=== PATIENT | female | born 1965 | race Caucasian/White ===

== ENCOUNTER 2016-07-26 18:51 | Emergency (ER) | payer OTHER ==
[2016-07-26] MEDS ORDERED: ACETAMINOPHEN 325 MG TABLET PO ONE (20:02)
[2016-07-26] MEDS ORDERED: ONDANSETRON 4 MG TAB.RAPDIS PO ONE (20:02)
--- NOTE | 2016-07-26 20:02 | ER Document Report ---
ED Medical Screen (RME) - General Mode of Arrival: Ambulatory Information source: Patient TRAVEL OUTSIDE OF THE [place] IN LAST 30 DAYS: No - General Chief Complaint: Head Injury Stated Complaint: HEAD INJURY Time Seen by Provider: 07/26/16 20:02 Notes: Patient presents today secondary to a fall 2 days ago. Patient states she tripped and fell hitting her head on the baseboard. Patient states she "slept for 2 days and then was awoken up by an ambulance last night". Patient states she refused transport at this time because she was "too tired". Patient states she has a history of anxiety with panic attacks. Patient states now her head feels like "she is wearing headphones". Patient also complains of neck pain, mild nausea, and a headache. Patient is not on any blood thinning medication. ( RUTHANN [place]) - Related Data Allergies/Adverse Reactions: naproxen [Naproxen] Allergy (Verified 03/13/13 11:55) Past Medical History - Past Medical History Cardiac Medical History: Reports: Hx Hypertension Neurological Medical History: Reports: Hx Seizures - 2008 x1 Renal/ Medical History: Denies: Hx Peritoneal Dialysis Musculoskeltal Medical History: Reports Hx Arthritis Psychiatric Medical History: Reports: Hx Depression Past Surgical History: Reports: Hx Abdominal Surgery - gastric bypass, hernia repair, Hx Section - Immunizations Hx Diphtheria, Pertussis, Tetanus Vaccination: - unknown Review of Systems - Review of Systems Gastrointestinal: See HPI, Nausea Neurological/Psychological: See HPI, Headaches Course - Re-evaluation Re-evalutation: 07/26/16 20:58 I personally performed the services described in the documentation, reviewed and edited the documentation which was dictated to the scribe in my presence, and it accurately records my words and actions. (TEO ADAMS) - Vital Signs Vital signs: Temp Pulse Resp BP Pulse Ox 97.9 F 81 123/78 97 07/26/16 19:34 07/26/16 19:34 07/26/16 19:34 07/26/16 19:34 Doctor's Discharge - Discharge Clinical Impression: Head trauma, Concussion Condition: Good Disposition: HOME, SELF-CARE Additional Instructions: You have likely sustained a contusion (bruise) to your head. If you had a CT scan done, it did not show any evidence of serious injury or bleeding. Symptoms to expect from a concussion include nausea, mild to moderate headache, difficulty concentrating or sleeping, and mild lightheadedness. These symptoms should improve over the next few days to weeks. Return to the emergency department or follow-up with your primary care doctor if your symptoms are not improving over this time. Signs of a more serious head injury include vomiting , severe headache, excessive sleepiness or confusion, and weakness or numbness in your face, arms or legs. Return immediately to the Emergency Department if you experience any of these more concerning symptoms. Rest, avoid strenuous physical or mental activity, and avoid activities that could potentially result in another head injury until all your symptoms from this head injury are completely resolved for at least 2-3 weeks. If you participate in sports, get cleared by your doctor or bilingual trainer before returning to play. You may take ibuprofen or acetaminophen over the counter according to label instructions for mild headache or scalp soreness.
[2016-07-26] MEDS ORDERED: ACETAMINOPHEN 325 MG TABLET ONE (20:22)
--- NOTE | 2016-07-26 20:53 | ER Document Report ---
ED Headache - General Chief Complaint: Head Injury Stated Complaint: HEAD INJURY Time Seen by Provider: 07/26/16 20:02 Mode of Arrival: Ambulatory Notes: Patient is a 51-year-old female who presents after falling and striking her head 2 days ago now complaining of symptoms confusion, intermittent blurred vision, nausea and forgetfulness. States that she did have loss of consciousness when she hit her head. States this was a mechanical trip and fall and denies any syncopal episode. She is not on anticoagulation. She has not had any vomiting, focal weakness, numbness. She has not seen her primary care doctor regarding today's concerns. Lights, sounds, and complex activities worsen her symptoms. She is noted that laying in a quiet dark room improves her symptoms. She does note an associated dull, constant, aching headache. TRAVEL OUTSIDE OF THE [place] IN LAST 30 DAYS: No - Related Data Allergies/Adverse Reactions: naproxen [Naproxen] Allergy (Verified 03/13/13 11:55) Past Medical History - General Information source: Patient - Social History Smoking Status: Never Smoker Frequency of alcohol use: None Drug Abuse: None Lives with: Spouse/Significant other Family History: Reviewed & Not Pertinent - Past Medical History Cardiac Medical History: Reports: Hx Hypertension Neurological Medical History: Reports: Hx Seizures - 2008 x1 Renal/ Medical History: Denies: Hx Peritoneal Dialysis Musculoskeltal Medical History: Reports Hx Arthritis Psychiatric Medical History: Reports: Hx Depression Past Surgical History: Reports: Hx Abdominal Surgery - gastric bypass, hernia repair, Hx Section - Immunizations Hx Diphtheria, Pertussis, Tetanus Vaccination: - unknown Review of Systems - Review of Systems Notes: Constitutional: Negative for fever. HENT: Negative for sore throat. Eyes: Negative for visual changes. Cardiovascular: Negative for chest pain. Respiratory: Negative for shortness of breath. Gastrointestinal: Negative for abdominal pain, vomiting or diarrhea. Genitourinary: Negative for dysuria. Musculoskeletal: Negative for back pain. Skin: Negative for rash. Neurological: Positive for headaches, negative for weakness or numbness. 10 point ROS negative except as marked above and in HPI. Physical Exam - Vital signs Vitals: Temp Pulse BP Pulse Ox 97.9 F 81 123/78 97 07/26/16 19:34 07/26/16 19:34 07/26/16 19:34 07/26/16 19:34 Interpretation: Normal Notes: PHYSICAL EXAMINATION: GENERAL: Well-appearing, no acute distress. HEAD: Atraumatic, normocephalic. EYES: Pupils equal round and reactive to light, extraocular movements intact, sclera anicteric, conjunctiva are normal. ENT: nares patent, no oral pharyngeal trauma. No hemotympanum, no Delcid's sign , no raccoon eyes. NECK: No midline cervical spine tenderness. Patient able to move their head to 45 bilaterally without any discomfort. LUNGS: Breath sounds clear to auscultation bilaterally and equal. No wheezes rales or rhonchi. HEART: Regular rate and rhythm without murmurs. CHEST WALL: No ecchymosis over the chest wall. ABDOMEN: Soft, nontender, normoactive bowel sounds. No guarding, no rebound. No abdominal bruising EXTREMITIES: Normal range of motion, no pitting or edema. No long bone deformities. BACK: No midline spinal tenderness, step-offs, or deformities. NEUROLOGICAL: Face symmetric. Tongue protrudes midline. Extraocular motions intact. Pupils are 2 mm and equally reactive. Normal speech, normal gait. 5 out of 5 strength in both the distal and proximal upper and lower extremities bilaterally. Sensation is grossly intact throughout. Finger to nose testing normal. Pronator drift normal. PSYCH: Normal mood, normal affect. SKIN: Warm, Dry, normal turgor, no rashes or lesions noted. Course - Re-evaluation Re-evalutation: 07/26/16 20:52 Presentation of head trauma in an otherwise well-appearing patient. No focal neurologic deficits on exam, no evidence of basilar skull fracture on exam without evidence of hemotympanum, raccoon eyes, or periauricular hematoma. No papilledema. Patient is not on anticoagulation. GCS is 15. Patient did have loss of consciousness. No episodes of vomiting. Patient is negative by Portuguese head CT criteria but a CT the head was obtained in triage prior to my assessment the patient and is noted to be normal. Patient evaluated by NEXUS criteria and found to be negative. Patient is also negative by iraqi C-spine criteria. No clinical evidence to suggest increased risk of cervical spine fracture. No indication for further imaging of the cervical spine this point. Her history is overall most consistent with an acute concussion. No additional need for additional labs or imaging.At this time will discharge with return precautions and follow-up recommendations. Verbal discharge instructions given a the bedside and opportunity for questions given. Medication warnings reviewed. Patient is in agreement with this plan and has verbalized understanding of return precautions and the need for primary care follow-up in the next 24-72 hours. - Vital Signs Vital signs: Temp Pulse Resp BP Pulse Ox 97.9 F 73 18 128/70 H 100 07/26/16 21:08 07/26/16 21:08 07/26/16 21:08 07/26/16 21:08 07/26/16 21:08 Discharge - Discharge Clinical Impression: Head trauma Qualifiers: Encounter type: initial encounter Qualified Code(s): S09.90XA - Unspecified injury of head, initial encounter Concussion Qualifiers: Encounter type: initial encounter Loss of consciousness presence/duration: with LOC of 30 min or less Qualified Code(s): S06.0X1A - Concussion with loss of consciousness of 30 minutes or less, initial encounter Condition: Good Disposition: HOME, SELF-CARE Additional Instructions: You have likely sustained a contusion (bruise) to your head. If you had a CT scan done, it did not show any evidence of serious injury or bleeding. Symptoms to expect from a concussion include nausea, mild to moderate headache, difficulty concentrating or sleeping, and mild lightheadedness. These symptoms should improve over the next few days to weeks. Return to the emergency department or follow-up with your primary care doctor if your symptoms are not improving over this time. Signs of a more serious head injury include vomiting , severe headache, excessive sleepiness or confusion, and weakness or numbness in your face, arms or legs. Return immediately to the Emergency Department if you experience any of these more concerning symptoms. Rest, avoid strenuous physical or mental activity, and avoid activities that could potentially result in another head injury until all your symptoms from this head injury are completely resolved for at least 2-3 weeks. If you participate in sports, get cleared by your doctor or link trainer operator before returning to play. You may take ibuprofen or acetaminophen over the counter according to label instructions for mild headache or scalp soreness.
[2016-07-26 21:12] VITALS: BP 128/70
== END 2016-07-26 21:09 | disposition home or self-care (01) ==
LOC: ER 18:51
DX: S06.0X1A Concussion with loss of consciousness of 30 minutes or less, initial encounter (principal); R11.0 Nausea; H53.8 Other visual disturbances; W19.XXXA Unspecified fall, initial encounter; I10 Essential (primary) hypertension; Z98.84 Bariatric surgery status
CPT/HCPCS: 99284; 70450; S0119

== ENCOUNTER 2016-12-02 16:03 | Emergency (ER) | payer SELFPAY ==
[2016-12-02] MEDS ORDERED: ALPRAZOLAM 0.5 MG TABLET PO ONE (17:21)
--- NOTE | 2016-12-02 17:21 | ER Document Report ---
ED Medical Screen (RME) - General Chief Complaint: Chest Pain Stated Complaint: CHEST PAIN Time Seen by Provider: 12/02/16 17:19 Notes: Patient states that she is under a lot of stress lately due to a divorce and some family issues. She states she is having nightmares. She states she has been out of her medications for several weeks. She states she is having chest pain and cannot stop twitching. TRAVEL OUTSIDE OF THE [place] IN LAST 30 DAYS: No Past Medical History - Social History Chew tobacco use (# tins/day): No Frequency of alcohol use: Occasional Drug Abuse: None - Past Medical History Cardiac Medical History: Reports: Hx Hypertension Neurological Medical History: Reports: Hx Seizures - 2008 x1 Renal/ Medical History: Denies: Hx Peritoneal Dialysis Musculoskeltal Medical History: Reports Hx Arthritis Psychiatric Medical History: Reports: Hx Depression Past Surgical History: Reports: Hx Abdominal Surgery - gastric bypass, hernia repair, Hx Section - Immunizations Hx Diphtheria, Pertussis, Tetanus Vaccination: - unknown Physical Exam - Vital signs Vitals: Temp Pulse Resp BP Pulse Ox 98.5 F 84 18 129/95 H 95 12/02/16 16:12 12/02/16 16:12 12/02/16 16:12 12/02/16 16:12 12/02/16 16:12 Course - Vital Signs Vital signs: Temp Pulse Resp BP Pulse Ox 98.5 F 84 18 129/95 H 95 12/02/16 16:12 12/02/16 16:12 12/02/16 16:12 12/02/16 16:12 12/02/16 16:12
--- NOTE | 2016-12-02 18:28 | EKG REPORT ---
SEVERITY:- NORMAL ECG - SINUS RHYTHM : Confirmed by: Corona Carrillo MD 02-Dec-2016 18:27:44
[2016-12-02 18:57] LABS: APPEARANCE,URINE SLIGHTLY-CLOUDY; BILIRUBIN,URINE NEGATIVE (NEGATIVE); GLUCOSE, URINE NEGATIVE (NEGATIVE); KETONES,URINE TRACE mg/dL (NEGATIVE); LEUKOCYTE ESTERASE,URINE SMALL (NEGATIVE); NITRITE,URINE POSITIVE (NEGATIVE); PROTEIN,URINE 30 mg/dL (NEGATIVE); URINE SPECIFIC GRAVITY 1.014; UROBILINOGEN,URINE NEGATIVE mg/dL (<2.0)
[2016-12-02] MEDS ORDERED: DIPHENHYDRAMINE HCL 50 MG/ML VIAL IV ONE (19:17)
[2016-12-02 19:44] LABS: ABSOLUTE EOSINOPHILS # (AUTO) 0.1 10^3/uL (0.0-0.6); ABSOLUTE MONOCYTES (AUTO) 0.2 10^3/uL (0.1-1.4); ABSOLUTE NEUT (AUTO) 2.8 10^3/uL (1.7-8.2); BASOPHILS % (AUTO) 0.9 % (0-2); HEMOGLOBIN 13.8 g/dL (12.0-15.5); HGB HCT DIFFERENCE 1.4; LYMPHOCYTES % (AUTO) 38.4 % (13-45); MEAN CORPUSCULAR HEMOGLOBIN 31.1 pg (27.0-33.4); MEAN CORPUSCULAR HGB CONC 34.5 g/dL (32.0-36.0); MEAN CORPUSCULAR VOLUME 90 fl (80-97); MONOCYTES % (AUTO) 4.8 % (3-13); RED BLOOD COUNT 4.42 10^6/uL (3.72-5.28); RED CELL DISTRIBUTION WIDTH 13.4 % (11.5-14.0); SEGMENTED NEUTROPHILS % (AUTO) 54.9 % (42-78); WHITE BLOOD COUNT 5.2 10^3/uL (4.0-10.5)
[2016-12-02 20:03] LABS: ALANINE AMINOTRANSFERASE 34 U/L (9-52); ALBUMIN 4.3 g/dL (3.5-5.0); ALKALINE PHOSPHATASE 91 U/L (38-126); ANION GAP 11 (5-19); ASPARTATE AMINO TRANSFERASE 26 U/L (14-36); BILIRUBIN,DIRECT 0.3 mg/dL (0.0-0.4); BILIRUBIN,TOTAL 0.6 mg/dL (0.2-1.3); BLOOD UREA NITROGEN 10 mg/dL (7-20); CALCIUM 9.5 mg/dL (8.4-10.2); CARBON DIOXIDE 25 mmol/L (22-30); CHLORIDE 104 mmol/L (98-107); CREATININE RESULT 0.76 mg/dL (0.52-1.25); GLUCOSE 80 mg/dL (75-110); POTASSIUM 4.1 mmol/L (3.6-5.0); SODIUM 139.8 mmol/L (137-145); TOTAL PROTEIN 6.8 g/dL (6.3-8.2)
[2016-12-02 20:06] LABS: ALCOHOL < 10 mg/dL (NONE DETECTED)
[2016-12-02] MEDS ORDERED: CEPHALEXIN 500 MG CAPSULE PO ONE (21:16)
--- NOTE | 2016-12-02 21:19 | ER Document Report ---
ED General - General Chief Complaint: Chest Pain Stated Complaint: CHEST PAIN Time Seen by Provider: 12/02/16 17:19 Mode of Arrival: Stretcher Information source: Patient TRAVEL OUTSIDE OF THE [place] IN LAST 30 DAYS: No - HPI Patient complains to provider of: Twitching Onset: This morning Onset/Duration: Persistent Quality of pain: No pain Associated symptoms: Chest pain Exacerbated by: Denies Relieved by: Denies Notes: Patient is a 51-year-old female presenting to the emergency room today complaining of twitching that has been going on all day, apparently she had some chest tightness but denies chest pain, she reports increased stress, decreased sleep, having "stress nightmares", history of seizures 8 years ago but denies this being a seizure and she does not currently take any seizure medication, denies a history of similar symptoms previously, she currently sees just at [facility], taking Xanax, Adderall, amitriptyline and Celexa, no new medications and no changes to those medications recently, she denies any injury or trauma Past Medical History - General Information source: Patient - Social History Smoking Status: Former Smoker Chew tobacco use (# tins/day): No Frequency of alcohol use: Occasional Drug Abuse: None Family History: Reviewed & Not Pertinent Patient has suicidal ideation: No Patient has homicidal ideation: No - Past Medical History Cardiac Medical History: Reports: Hx Hypertension Neurological Medical History: Reports: Hx Seizures - 2008 x1 Renal/ Medical History: Denies: Hx Peritoneal Dialysis Musculoskeltal Medical History: Reports Hx Arthritis Psychiatric Medical History: Reports: Hx Depression Past Surgical History: Reports: Hx Abdominal Surgery - gastric bypass, hernia repair, Hx Section - Immunizations Hx Diphtheria, Pertussis, Tetanus Vaccination: - unknown Review of Systems - Review of Systems Constitutional: No symptoms reported EENT: No symptoms reported Cardiovascular: See HPI Respiratory: No symptoms reported Gastrointestinal: No symptoms reported Genitourinary: No symptoms reported Female Genitourinary: No symptoms reported Musculoskeletal: No symptoms reported Skin: No symptoms reported Hematologic/Lymphatic: No symptoms reported Neurological/Psychological: See HPI -: Yes All other systems reviewed and negative Physical Exam - Vital signs Vitals: Temp Pulse Resp BP Pulse Ox 98.5 F 84 18 129/95 H 95 12/02/16 16:12 12/02/16 16:12 12/02/16 16:12 12/02/16 16:12 12/02/16 16:12 Interpretation: Normal - General General appearance: Appears well, Alert - HEENT Head: Normocephalic, Atraumatic Eyes: Normal Pupils: PERRL - Respiratory Respiratory status: No respiratory distress Chest status: Nontender Breath sounds: Normal Chest palpation: Normal - Cardiovascular Rhythm: Regular Heart sounds: Normal auscultation Murmur: No - Abdominal Inspection: Normal Distension: No distension Bowel sounds: Normal Tenderness: Nontender Organomegaly: No organomegaly - Back Back: Normal, Nontender - Extremities General upper extremity: Normal inspection, Nontender, Normal color, Normal ROM , Normal temperature General lower extremity: Normal inspection, Nontender, Normal color, Normal ROM , Normal temperature, Normal weight bearing. No: Freda's sign - Neurological Neuro grossly intact: Yes Cognition: Normal Orientation: AAOx4 [place] Coma Scale Eye Opening: Spontaneous [place] Coma Scale Verbal: Oriented [place] Coma Scale Motor: Obeys Commands [place] Coma Scale Total: 15 Speech: Normal Motor strength normal: LUE, RUE, LLE, RLE Additional motor exam normals: Other - Patient is having twitching and or spasms of the left arm and shoulder during my evaluation, when I distract her they seem to stop Sensory: Normal - Psychological Associated symptoms: Flat affect - Skin Skin Temperature: Warm Skin Moisture: Dry Skin Color: Normal Course - Re-evaluation Re-evalutation: 12/02/16 22:32 Patient admits to a mental health history, she reports having twitching throughout the day today, during my evaluation her twitching activity seems to stop when I distract her, she does admit to decreased sleep, increased stressors and "stress nightmares", she states that she sees just at [facility] every 3 months and is not due for an appointment anytime soon, she is agreeable to staying in the emergency room tonight to speak with our mental health worker in the morning to discuss any further resources that might be available for her symptoms - Vital Signs Vital signs: Temp Pulse Resp BP Pulse Ox 98.5 F 84 18 129/95 H 95 12/02/16 16:12 12/02/16 16:12 12/02/16 16:12 12/02/16 16:12 12/02/16 16:12 - Laboratory Result Diagrams: 12/02/16 19:20 12/02/16 19:20 Laboratory results interpreted by me: 12/02/16 12/02/16 17:59 19:20 Urine Protein 30 H Urine Ketones TRACE H Urine Nitrite POSITIVE H Ur Leukocyte Esterase SMALL H Salicylates 1.5 L Acetaminophen < 10 L - EKG Interpretation by Me EKG shows normal: Sinus rhythm Rate: Normal Rhythm: NSR Discharge - Discharge Clinical Impression: Twitching, Anxiety Condition: Stable Disposition: PSYCH HOSP/UNIT
[2016-12-02] MEDS ORDERED: DIPHENHYDRAMINE HCL 50 MG/ML VIAL ONE (23:01)
[2016-12-02 23:02] LABS: AMORPHOUS SEDIMENT,URINE TRACE /HPF; APPEARANCE,URINE CLOUDY; BILIRUBIN,URINE NEGATIVE (NEGATIVE); GLUCOSE, URINE NEGATIVE (NEGATIVE); KETONES,URINE 20 mg/dL (NEGATIVE); LEUKOCYTE ESTERASE,URINE MODERATE (NEGATIVE); NITRITE,URINE POSITIVE (NEGATIVE); PROTEIN,URINE 30 mg/dL (NEGATIVE); URINE SPECIFIC GRAVITY 1.023; UROBILINOGEN,URINE NEGATIVE mg/dL (<2.0)
[2016-12-02 23:14] LABS: URINE BARBITURATES SCREEN NEGATIVE; URINE METHADONE SCREEN NEGATIVE; URINE OPIATES LOW NEGATIVE; URINE PHENCYCLIDINE SCREEN NEGATIVE
[2016-12-02] MEDS ORDERED: ACETAMINOPHEN 325 MG TABLET PO ONE (23:25)
--- NOTE | 2016-12-03 10:53 | ER Document Report ---
ED Psych Disorder / Suicide - General Chief Complaint: Chest Pain Stated Complaint: CHEST PAIN Time Seen by Provider: 12/02/16 17:19 Mode of Arrival: Stretcher TRAVEL OUTSIDE OF THE [place] IN LAST 30 DAYS: No - HPI Notes: Patient is a 51-year-old female presenting to the emergency room today complaining of twitching that has been going on all day, apparently she had some chest tightness but denies chest pain, she reports increased stress, decreased sleep, having "stress nightmares", history of seizures 8 years ago but denies this being a seizure and she does not currently take any seizure medication, denies a history of similar symptoms previously, she currently sees just at [facility], taking Xanax, Adderall, amitriptyline and Celexa, no new medications and no changes to those medications recently, she denies any injury or trauma Clinician conducted chart review: Attending physician noted the patient reported having twitching throughout the day today, "during my evaluation her twitching activity seems to stop when I distract her." Attending nurse noted "PT DOES NOT APPEAR TO BE TWITCHING THIS NURSE HAS WALKED BY SEVERAL TIMES IN LAST HOUR." it is also noted the patient continued with this behavior of only twitching when she thought she was being observed the entire evening. Evaluation Clinician notes patient is not twitching upon entering the room. As conversation progressed patient twitches more often and increased in movement. Patient disclosed that she has been under a lot of stress. 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 She states "they wanted me to close the case but she was not safe and I would not do it." She continued disclosed that she ended up being fired but reasoning was because she "did not fill out time her timesheets." Patient does not disclose further employment past that time. She states she goes to [employer] and has anxiety. Patient disclosed she is prescribed Celexa, Adderall, Xanax, amitriptyline. She states it has been about 3 months since she has been taking medication. Patient is alert and orientated to person, place, time and circumstance. Mood is anxious with tearful affect. Patient is noted to demonstrate psychomotor agitation however appears to be in control of this movement as it is only observed when patient feels she is being watched, and increases the movement during conversation. Patient denies suicidal and homicidal ideation. Patient denies auditory visual hallucinations. Delusions were absent and behaviors congruent with intact reality based presentation i.e. organized, linear, rational thinking. Eye contact was fair. Conversational speech was within normal rate tone and prosody. Intellectual abilities appear to be within average range. Attention and concentration were good. Insight, judgment, impulse control are good. 311 (F32.9) unspecified depressive disorder 300.00 (F41.9) unspecified anxiety disorder per history provided by patient Impression\\plan: Patient is considered psychiatrically clear for discharge. Patient does not meet IVC criteria per [place] GS 122C. Patient denies suicidal and homicidal ideation. Delusions were absent and behaviors congruent with intact reality based presentation i.e. organized, linear, rational thinking. Patient discloses issues with psychomotor agitation however it is noted by attending physician, attending nurses, and this clinician patient appears to be in control of this movement. Patient is recommended for outpatient services for mental health. Dr. Meyer was consulted and the care management of the patient ; attending physician is in agreement with her conditions and disposition per Past Medical History - General Information source: Patient - Social History Smoking Status: Former Smoker Chew tobacco use (# tins/day): No Frequency of alcohol use: Occasional Drug Abuse: None Family History: Reviewed & Not Pertinent Patient has suicidal ideation: No Patient has homicidal ideation: No - Past Medical History Cardiac Medical History: Reports: Hx Hypertension Neurological Medical History: Reports: Hx Seizures - 2008 x1 Renal/ Medical History: Denies: Hx Peritoneal Dialysis Musculoskeltal Medical History: Reports Hx Arthritis Psychiatric Medical History: Reports: Hx Depression Past Surgical History: Reports: Hx Abdominal Surgery - gastric bypass, hernia repair, Hx Section - Immunizations Hx Diphtheria, Pertussis, Tetanus Vaccination: - unknown Physical Exam - Vital signs Vitals: Temp Pulse Resp BP Pulse Ox 98.5 F 84 18 129/95 H 95 12/02/16 16:12 12/02/16 16:12 12/02/16 16:12 12/02/16 16:12 12/02/16 16:12 Course - Vital Signs Vital signs: Temp Pulse Resp BP Pulse Ox 98.5 F 84 16 137/91 H 97 12/02/16 16:12 12/02/16 16:12 12/03/16 10:30 12/03/16 10:30 12/03/16 10:30 - Laboratory Result Diagrams: 12/02/16 19:20 12/02/16 19:20 Laboratory results interpreted by me: 12/02/16 12/02/16 12/02/16 17:59 19:20 22:40 Urine Protein 30 H 30 H Urine Ketones TRACE H 20 H Urine Nitrite POSITIVE H POSITIVE H Ur Leukocyte Esterase SMALL H MODERATE H Salicylates 1.5 L Acetaminophen < 10 L Discharge - Discharge Clinical Impression: Twitching, Anxiety Urinary tract infection Qualifiers: Urinary tract infection type: site unspecified Hematuria presence: without hematuria Qualified Code(s): N39.0 - Urinary tract infection, site not specified Condition: Stable Disposition: HOME, SELF-CARE Additional Instructions: Anxiety The physician feels that some of your health problems are being caused by anxiety. Anxiety affects your health in many ways. Anxiety alone can cause palpitations, sweats, chest pains, abdominal pains, shortness of breath, and headaches. It contributes to ulcer disease, high blood pressure, irritable bowel syndrome, and has been shown to cause flare-ups of many other diseases. Anxiety is not a simple disorder to treat. If the anxiety is due to recent life stresses, you may simply need time to "work through" the changes. If the anxiety is due to an underlying unhappiness with yourself or due to psychiatric disturbance, professional help will be needed. Your physician can refer you for further help if needed. Anti-anxiety medication is occasionally given if the stress is acute or if you are having trouble sleeping. Chronic or frequent use of these medications is not a good idea because the body becomes reliant on it, preventing you from dealing with life's normal stresses. [facility] with [facility] for your outpatient mental health services in 3-5 days. AT ANY TIME, IF YOUR SYMPTOMS CHANGE SIGNIFICANTLY OR WORSEN OR YOU DEVELOP NEW SYMPTOMS, RETURN TO THE EMERGENCY DEPARTMENT IMMEDIATELY FOR RE-EVALUATION. OUR GOAL IS TO PROVIDE EXCELLENT MEDICAL CARE! WE HOPE THAT WE HAVE MET YOUR EXPECTATIONS DURING YOUR EMERGENCY DEPARTMENT VISIT AND THAT YOU FEEL YOU HAVE RECEIVED EXCELLENT CARE! Referrals: [facility] [Outside] - Follow up in 3-5 days
[2016-12-03] MEDS ORDERED: OLANZAPINE 5 MG TAB.RAPDIS PO ONE (11:22)
[2016-12-03 11:40] VITALS: BP 131/95
== END 2016-12-03 11:41 | disposition home or self-care (01) ==
LOC: ER 16:03
DX: F41.9 Anxiety disorder, unspecified (principal); R25.3 Fasciculation; R07.89 Other chest pain; F32.9 Major depressive disorder, single episode, unspecified; N39.0 Urinary tract infection, site not specified; I10 Essential (primary) hypertension; Z79.899 Other long term (current) drug therapy; Z98.84 Bariatric surgery status; Z87.891 Personal history of nicotine dependence; Z63.5 Disruption of family by separation and divorce; Z56.0 Unemployment, unspecified
CPT/HCPCS: 93005; 99285; 96374; 36415; 80307 ×4; 85025; 80053; 81001; 84484; 93010; J3490; J1200

== ENCOUNTER 2019-09-03 12:28 | Emergency (ER) | payer SELFPAY ==
--- NOTE | 2019-09-03 12:48 | ER Document Report ---
ED Medical Screen (RME) - General Chief Complaint: Feet Swelling Stated Complaint: FEET/LEG SWELLING Time Seen by Provider: 09/03/19 12:42 Mode of Arrival: Ambulatory Information source: Patient Notes: HPI; 54-year-old female presents emergency room complaining of bilateral leg swelling for the past 4 weeks. Denies any recent travel. No dietary changes. Complains of shortness of breath worse with exertion. Denies chest pain. No history of CHF. PE: Alert and oriented x3. Moderate distress noted. Lungs with bibasilar crackles no rales no rhonchi. Heart: Regular rate rhythm without murmurs rubs or gallops. 3+ pitting edema bilateral lower extremities. I have greeted and performed a rapid initial assessment of this patient. A comprehensive ED assessment and evaluation of the patient, analysis of test results and completion of the medical decision making process will be conducted by additional ED providers. I have specifically instructed the patient or family members with the patient to immediately return to any nursing staff should anything change in the patient's condition or with their chief complaint. TRAVEL OUTSIDE OF THE [place] IN LAST 30 DAYS: No - Related Data Allergies/Adverse Reactions: No Known Allergies Allergy (Unverified 09/03/19 12:41) Past Medical History - Past Medical History Cardiac Medical History: Reports: Hx Hypertension Neurological Medical History: Reports: Hx Seizures - 2008 x1 Renal/ Medical History: Denies: Hx Peritoneal Dialysis Musculoskeltal Medical History: Reports Hx Arthritis Psychiatric Medical History: Reports: Hx Depression Past Surgical History: Reports: Hx Abdominal Surgery - gastric bypass, hernia repair, Hx Section - Immunizations Hx Diphtheria, Pertussis, Tetanus Vaccination: - unknown Physical Exam - Vital signs Vitals: Temp Pulse Resp BP Pulse Ox 98.7 F 83 20 122/76 96 09/03/19 12:35 09/03/19 12:35 09/03/19 12:35 09/03/19 12:35 09/03/19 12:35 Course - Vital Signs Vital signs: Temp Pulse Resp BP Pulse Ox 98.7 F 83 20 122/76 96 09/03/19 12:35 09/03/19 12:35 09/03/19 12:35 09/03/19 12:35 09/03/19 12:35
[2019-09-03 13:20] LABS: ABSOLUTE EOSINOPHILS # (AUTO) 0.1 10^3/uL (0.0-0.6); ABSOLUTE LYMPHOCYTES (AUTO) 2.1 10^3/uL (0.5-4.7); ABSOLUTE MONOCYTES (AUTO) 0.3 10^3/uL (0.1-1.4); ABSOLUTE NEUT (AUTO) 2.6 10^3/uL (1.7-8.2); BASOPHILS % (AUTO) 0.7 % (0-2); EOSINOPHILS % (AUTO) 1.7 % (0-6); LYMPHOCYTES % (AUTO) 41.1 % (13-45); MEAN CORPUSCULAR HEMOGLOBIN 29.6 pg (27.0-33.4); MEAN CORPUSCULAR HGB CONC 33.2 g/dL (32.0-36.0); MEAN CORPUSCULAR VOLUME 89 fl (80-97); MONOCYTES % (AUTO) 5.3 % (3-13); PLATELET COUNT 329 10^3/uL (150-450); RED BLOOD COUNT 4.38 10^6/uL (3.72-5.28); RED CELL DISTRIBUTION WIDTH 14.6 % (11.5-14.0); SEGMENTED NEUTROPHILS % (AUTO) 51.2 % (42-78); TOTAL CELLS COUNTED % (AUTO) 100 %; WHITE BLOOD COUNT 5.2 10^3/uL (4.0-10.5)
--- NOTE | 2019-09-03 13:23 | RADIOLOGY REPORT (SQ) ---
EXAM DESCRIPTION: CHEST 2 VIEWS IMAGES COMPLETED DATE/TIME: 09/03/2019 1:09 pm REASON FOR STUDY: Dyspnea COMPARISON: PA and lateral views of the chest from 11/30/2013. EXAM PARAMETERS: NUMBER OF VIEWS: Two views. TECHNIQUE: PA and lateral views of the chest were obtained. RADIATION DOSE: NA LIMITATIONS: None. FINDINGS: LUNGS AND PLEURA: No consolidation, pleural effusion or pneumothorax. MEDIASTINUM AND HILAR STRUCTURES: No mediastinal or hilar contour abnormality. HEART AND VASCULAR STRUCTURES: The cardiac silhouette and pulmonary vasculature are within normal brand its. BONES: No acute findings. HARDWARE: None in the chest. OTHER: No other finding. IMPRESSION: No acute cardiopulmonary process. TECHNICAL DOCUMENTATION: JOB ID: [id number] 2010 [employer]- All Rights Reserved Reading location - IP/workstation name: [email or web address]
[2019-09-03 13:29] LABS: APPEARANCE,URINE SLIGHTLY-CLOUDY; BILIRUBIN,URINE NEGATIVE (NEGATIVE); COLOR,URINE YELLOW; GLUCOSE, URINE NEGATIVE (NEGATIVE); KETONES,URINE NEGATIVE (NEGATIVE); LEUKOCYTE ESTERASE,URINE MODERATE (NEGATIVE); NITRITE,URINE POSITIVE (NEGATIVE); PROTEIN,URINE NEGATIVE (NEGATIVE); URINE SPECIFIC GRAVITY 1.014; UROBILINOGEN,URINE NEGATIVE mg/dL (<2.0)
[2019-09-03 13:40] LABS: ALBUMIN 3.3 g/dL (3.5-5.0); ALKALINE PHOSPHATASE 75 U/L (38-126); ASPARTATE AMINO TRANSFERASE 24 U/L (14-36); BILIRUBIN,TOTAL 0.2 mg/dL (0.2-1.3); BLOOD UREA NITROGEN 11 mg/dL (7-20); CALCIUM 8.7 mg/dL (8.4-10.2); CREATINE KINASE 61 U/L (30-135); GLUCOSE 101 mg/dL (75-110); TOTAL PROTEIN 5.5 g/dL (6.3-8.2)
[2019-09-03 13:45] LABS: CARBON DIOXIDE 30 mmol/L (22-30); CHLORIDE 105 mmol/L (98-107)
[2019-09-03 13:46] LABS: ANION GAP 2 (5-19)
[2019-09-03 13:48] LABS: CREATINE KINASE MB 0.23 ng/mL (<4.55); NT PRO BNP 23 pg/mL (<125)
[2019-09-03 13:54] LABS: TROPONIN I < 0.012 ng/mL
--- NOTE | 2019-09-03 17:46 | ER Document Report ---
ED Extremity Problem, Lower - General Chief Complaint: Feet Swelling Stated Complaint: FEET/LEG SWELLING Time Seen by Provider: 09/03/19 12:42 Primary Care Provider: [facility] [Provider Group] - Follow up as needed [facility] [Provider Group] - Follow up as needed Mode of Arrival: Ambulatory Notes: Patient is a 54-year-old female who presents emergency department with a chief complaint of bilateral leg swelling. Patient reports she has had intermittent bilateral leg swelling for 1 month. She reports that she elevates her legs and decreases the amount of sodium in her diet without relief. Patient reports that she has a family history of congestive heart failure and concerned this may be associated. Patient reports she is also homeless and under a lot of stress as her son months ago. Patient reports she has had high anxiety and is supposed to be on multiple medications. Patient reports she used to go to see [facility] but since being homeless and losing her health insurance she has not been able to follow-up. Patient denies urinary symptoms. Patient denies cough. Patient reports overall fatigue. Patient states she does not take any home medications. TRAVEL OUTSIDE OF THE [place] IN LAST 30 DAYS: No - Related Data Allergies/Adverse Reactions: No Known Allergies Allergy (Unverified 09/03/19 12:41) Past Medical History - General Information source: Patient - Social History Smoking Status: Current Some Day Smoker Smoking Education Provided: Yes Frequency of alcohol use: None Drug Abuse: None Lives with: Homeless Family History: Reviewed & Not Pertinent Patient has homicidal ideation: No - Past Medical History Cardiac Medical History: Reports: Hx Hypertension Pulmonary Medical History: Reports: None EENT Medical History: Reports: None Neurological Medical History: Reports: Hx Seizures - 2008 x1 Endocrine Medical History: Reports: None Renal/ Medical History: Reports: None. Denies: Hx Peritoneal Dialysis Malignancy Medical History: Reports: None GI Medical History: Reports: None Musculoskeletal Medical History: Reports Hx Arthritis Psychiatric Medical History: Reports: Hx Depression Traumatic Medical History: Reports: None Infectious Medical History: Reports: None Past Surgical History: Reports: Hx Abdominal Surgery - gastric bypass, hernia repair, Hx Section - Immunizations Hx Diphtheria, Pertussis, Tetanus Vaccination: - unknown Review of Systems - Review of Systems Constitutional: See HPI EENT: No symptoms reported Cardiovascular: See HPI Respiratory: No symptoms reported Gastrointestinal: No symptoms reported Genitourinary: No symptoms reported Female Genitourinary: No symptoms reported Musculoskeletal: No symptoms reported Skin: No symptoms reported Hematologic/Lymphatic: No symptoms reported Neurological/Psychological: No symptoms reported Physical Exam - Vital signs Vitals: Temp Pulse Resp BP Pulse Ox 98.7 F 83 20 122/76 96 09/03/19 12:35 09/03/19 12:35 09/03/19 12:35 09/03/19 12:35 09/03/19 12:35 Interpretation: Normal - Notes Notes: GENERAL: Well-appearing, well-nourished and in no acute distress. HEAD: Atraumatic, normocephalic. EYES: Pupils equal round and reactive to light, extraocular movements intact, sclera anicteric, conjunctiva are normal. ENT: TMs normal, nares patent, oropharynx clear without exudates. Moist mucous membranes. NECK: Normal range of motion, supple without lymphadenopathy or JVD. LUNGS: Breath sounds clear to auscultation bilaterally and equal. No wheezes rales or rhonchi. HEART: Regular rate and rhythm without murmurs, rubs or gallops. ABDOMEN: Soft, nontender, normoactive bowel sounds. No guarding, no rebound. No masses appreciated. BACK: No cervical, thoracic, lumbar midline tenderness. No saddle anesthesia, normal distal neurovascular exam. GENITOURINARY: Deferred. EXTREMITIES: Normal range of motion, + 1 pitting edema to b/l lower extremities, slightly worse on left. No clubbing or cyanosis. NEUROLOGICAL: Cranial nerves II through XII grossly intact. Normal speech, normal gait. PSYCH: Normal mood, normal affect. SKIN: Warm, Dry, normal turgor, no rashes or lesions noted. Course - Re-evaluation Re-evalutation: 09/03/19 17:59 Patient reports she has been under a lot of stress recently. Patient reports she is homeless. Patient denies suicidal thoughts or homicidal thoughts. Sta kristie she is living in her vehicle. I did offer for the patient to speak with her mental health counselor as a resource. Patient reports that she does not want to wait and would like to go home as she does not like to drive pass dark. I did provide the patient with multiple resources in the local area. I did inform her that we do not refill anxiety medication such as her amitriptyline and Xanax. She will need to follow-up with [facility]. We will treat the patient for urinary tract infection. Patient reports that she has been walking a lot as she thought this would help with the circulation in her legs and help with the swelling. I did inform the patient to stay off of her feet and to elevate above the heart. Patient was given referrals for [facility]. - Vital Signs Vital signs: Temp Pulse Resp BP Pulse Ox 97.9 F 72 20 130/83 H 99 09/03/19 18:21 09/03/19 18:21 09/03/19 18:21 09/03/19 18:21 09/03/19 18:21 - Laboratory Result Diagrams: 09/03/19 12:57 09/03/19 12:57 Laboratory results interpreted by me: 09/03/19 09/03/19 09/03/19 12:57 12:57 12:57 RDW 14.6 H Anion Gap 2 L Total Protein 5.5 L Albumin 3.3 L Urine Nitrite POSITIVE H Ur Leukocyte Esterase MODERATE H Urine Ascorbic Acid 40 H 09/03/19 17:43 Patient does not have a leukocytosis, anemia, altered patient electrolytes or kidney function. Patient's AST and ALT are normal. Patient does have positive nitrites and leuks in her urine consistent with a UTI. Laboratory 09/03/19 09/03/19 09/03/19 12:57 12:57 12:57 WBC 5.2 RBC 4.38 Hgb 13.0 Hct 39.0 MCV 89 MCH 29.6 MCHC 33.2 RDW 14.6 H Plt Count 329 Lymph % (Auto) 41.1 Bureau % (Auto) 5.3 Eos % (Auto) 1.7 Baso % (Auto) 0.7 Absolute Neuts (auto) 2.6 Absolute Lymphs (auto) 2.1 Absolute Monos (auto) 0.3 Absolute Eos (auto) 0.1 Absolute Basos (auto) 0.0 Seg Neutrophils % 51.2 Sodium 137.2 Potassium 4.0 Chloride 105 Carbon Dioxide 30 Anion Gap 2 L BUN 11 Creatinine 0.93 Est GFR ( Amer) > 60 Est GFR (MDRD) Non-Af > 60 Glucose 101 Calcium 8.7 Total Bilirubin 0.2 Direct Bilirubin 0.0 Neonat Total Bilirubin Not Reportable Neonat Direct Bilirubin Not Reportable Neonat Indirect Bili Not Reportable AST 24 ALT 21 Alkaline Phosphatase 75 Creatine Kinase 61 CK-MB (CK-2) 0.23 Troponin I < 0.012 NT-Pro-B Natriuret Pep 23 Total Protein 5.5 L Albumin 3.3 L Urine Color Urine Appearance Urine pH Ur Specific [place] Urine Protein Urine Glucose (UA) Urine Ketones Urine Blood Urine Nitrite Urine Bilirubin Urine Urobilinogen Ur Leukocyte Esterase Urine WBC (Auto) Urine RBC (Auto) Urine Bacteria (Auto) Squamous Epi Cells Auto Urine Mucus (Auto) Urine Ascorbic Acid 09/03/19 12:57 WBC RBC Hgb Hct MCV MCH MCHC RDW Plt Count Lymph % (Auto) Bureau % (Auto) Eos % (Auto) Baso % (Auto) Absolute Neuts (auto) Absolute Lymphs (auto) Absolute Monos (auto) Absolute Eos (auto) Absolute Basos (auto) Seg Neutrophils % Sodium Potassium Chloride Carbon Dioxide Anion Gap BUN Creatinine Est GFR ( Amer) Est GFR (MDRD) Non-Af Glucose Calcium Total Bilirubin Direct Bilirubin Neonat Total Bilirubin Neonat Direct Bilirubin Neonat Indirect Bili AST ALT Alkaline Phosphatase Creatine Kinase CK-MB (CK-2) Troponin I NT-Pro-B Natriuret Pep Total Protein Albumin Urine Color YELLOW Urine Appearance SLIGHTLY-CLOUDY Urine pH 6.0 Ur Specific [place] 1.014 Urine Protein NEGATIVE Urine Glucose (UA) NEGATIVE Urine Ketones NEGATIVE Urine Blood NEGATIVE Urine Nitrite POSITIVE H Urine Bilirubin NEGATIVE Urine Urobilinogen NEGATIVE Ur Leukocyte Esterase MODERATE H Urine WBC (Auto) 16 Urine RBC (Auto) 1 Urine Bacteria (Auto) 1+ Squamous Epi Cells Auto 9 Urine Mucus (Auto) RARE Urine Ascorbic Acid 40 H - Diagnostic Test Radiology reviewed: Reports reviewed Radiology results interpreted by me: 09/03/19 17:43 Chest X-Ray 09/03/19 12:46 IMPRESSION: No acute cardiopulmonary process. - EKG Interpretation by Me Additional EKG results interpreted by me: 09/03/19 17:43 Patient's EKG shows a normal sinus rhythm with a heart rate of 80. Patient's ND interval is 204, QT is 376 and QTc is 434. Patient has a normal axis deviation. There is no ST segment changes in consecutive leads. EKG appears to be similar to her previous in 2017. Discharge - Discharge Clinical Impression: Bilateral edema of lower extremity, Anxiety Urinary tract infection Qualifiers: Urinary tract infection type: site unspecified Hematuria presence: without hematuria Qualified Code(s): N39.0 - Urinary tract infection, site not specified Condition: Stable Disposition: HOME, SELF-CARE Instructions: Cephalexin ([facility]) Additional Instructions: Today are seen emergency department for bilateral leg swelling. We did work you up for congestive heart failure. Your blood work is reassuring, your EKG was normal, and your chest x-ray was negative. Is unsure what is causing the swelling to your legs. This will need further follow-up. Since you do not have health insurance have provided you with multiple outpatient resources such as the [facility] and [facility]. They do assist patients who do not have health insurance. Please call them tomorrow to schedule an appointment. Please return the emergency department if her symptoms worsen or change. Please follow-up with [facility] for medication refills. Urinary Tract Infection Your evaluation indicates that you have a urinary tract infection. This is due to germs growing in the bladder. This is a common problem. This infection usually responds quickly to antibiotics. Your antibiotic should be taken exactly as prescribed. Drink plenty of fluids -- three to four quarts a day. Occasionally, a bladder anesthetic will be prescribed to help stop the feeling of urgency until the antibiotic has a chance to clear the infection. This may cause your urine to be dark orange. Certain urine infections require a culture. If the doctor obtained a culture, the results will be back in two days. You should call to see if a change in treatment is needed. A repeat urinalysis after you finish treatment is often recommended. The physician will let you know if further testing is required. Call the doctor if you develop fever, chills, flank pain, inability to urinate, or blood in the urine. Edema, Peripheral You have swelling in your legs. This is called peripheral edema. It can be caused by "leaky capillaries," inflammation, disease of the leg veins, or excess salt and water in your body. Edema may be a sign of heart, kidney, or liver disease. A medical evaluation can determine if there is a serious underlying cause for your edema. Avoid prolonged standing. If you must sit for a long time, occasionally get up and walk around or elevate your legs. Support stockings can be helpful in limiting swelling. Often diuretic or water pills are used to remove excess salt and water from your body. Call the doctor or return if you develop increased swelling, pain, or redness, shortness of breath, chest pain, or any other significant change. Anxiety The physician feels that some of your health problems are being caused by anxiety. Anxiety affects your health in many ways. Anxiety alone can cause palpitations, sweats, chest pains, abdominal pains, shortness of breath, and headaches. It contributes to ulcer disease, high blood pressure, irritable bowel syndrome, and has been shown to cause flare-ups of many other diseases. Anxiety is not a simple disorder to treat. If the anxiety is due to recent life stresses, you may simply need time to "work through" the changes. If the anxiety is due to an underlying unhappiness with yourself or due to psychiatric disturbance, professional help will be needed. Your physician can refer you for further help if needed. Anti-anxiety medication is occasionally given if the stress is acute or if you are having trouble sleeping. Chronic or frequent use of these medications is not a good idea because the body becomes reliant on it, preventing you from dealing with life's normal stresses. Prescriptions: Cephalexin Monohydrate [Keflex 500 mg Capsule] 500 mg PO BID #14 capsule Forms: Smoking Cessation Education Referrals: [facility] [Provider Group] - Follow up as needed [facility] [Provider Group] - Follow up as needed
[2019-09-03] MEDS ORDERED: CEPHALEXIN 500 MG CAPSULE PO ONE (18:01)
[2019-09-03 18:26] VITALS: BP 130/83
--- NOTE | 2019-09-04 00:22 | EKG REPORT ---
SEVERITY:- NORMAL ECG - SINUS RHYTHM : Confirmed by: Love Silva 04-Sep-2019 00:22:08
== END 2019-09-03 18:28 | disposition home or self-care (01) ==
LOC: ER 12:28
DX: R60.0 Localized edema (principal); N39.0 Urinary tract infection, site not specified; F41.9 Anxiety disorder, unspecified; R53.83 Other fatigue; F17.200 Nicotine dependence, unspecified, uncomplicated; I10 Essential (primary) hypertension; Z59.0 Homelessness; Z63.4 Disappearance and death of family member; Z82.49 Family history of ischemic heart disease and other diseases of the circulatory system
CPT/HCPCS: 36415; 71046; 80053; 81001; 82550; 82553; 83880; 84484; 85025; 93005; 93010; 99284

== ENCOUNTER 2019-12-16 13:24 | Emergency (ER) | payer SELFPAY ==
[2019-12-16] MEDS ORDERED: ONDANSETRON HCL INJ/PF 4 MG/2 ML SDV IV ONE (13:55)
[2019-12-16] MEDS ORDERED: RINGERS SOLUTION,LACTATED 1,000 ML IV ONE (13:55)
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
[2019-12-16] MEDS ORDERED: HYDROMORPHONE HCL INJ/PF 2 MG/ML AMPULE IV ONE (14:54)
[2019-12-16 14:55] LABS: ABSOLUTE BASOPHILS # (AUTO) 0.1 10^3/uL (0.0-0.2); ABSOLUTE EOSINOPHILS # (AUTO) 0.1 10^3/uL (0.0-0.6); ABSOLUTE LYMPHOCYTES (AUTO) 1.8 10^3/uL (0.5-4.7); ABSOLUTE MONOCYTES (AUTO) 0.3 10^3/uL (0.1-1.4); EOSINOPHILS % (AUTO) 1.6 % (0-6); HEMATOCRIT 37.7 % (36.0-47.0); HEMOGLOBIN 12.9 g/dL (12.0-15.5); LYMPHOCYTES % (AUTO) 28.6 % (13-45); MEAN CORPUSCULAR HEMOGLOBIN 29.7 pg (27.0-33.4); MEAN CORPUSCULAR HGB CONC 34.2 g/dL (32.0-36.0); MEAN CORPUSCULAR VOLUME 87 fl (80-97); MONOCYTES % (AUTO) 4.4 % (3-13); PLATELET COUNT 366 10^3/uL (150-450); RED BLOOD COUNT 4.34 10^6/uL (3.72-5.28); RED CELL DISTRIBUTION WIDTH 14.5 % (11.5-14.0); SEGMENTED NEUTROPHILS % (AUTO) 64.4 % (42-78); TOTAL CELLS COUNTED % (AUTO) 100 %; WHITE BLOOD COUNT 6.2 10^3/uL (4.0-10.5)
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
[2019-12-16 15:05] LABS: APPEARANCE,URINE SLIGHTLY-CLOUDY; BILIRUBIN,URINE NEGATIVE (NEGATIVE); COLOR,URINE STRAW; GLUCOSE, URINE NEGATIVE (NEGATIVE); KETONES,URINE NEGATIVE (NEGATIVE); LEUKOCYTE ESTERASE,URINE NEGATIVE (NEGATIVE); NITRITE,URINE NEGATIVE (NEGATIVE); PROTEIN,URINE NEGATIVE (NEGATIVE); URINE SPECIFIC GRAVITY 1.004; UROBILINOGEN,URINE NEGATIVE mg/dL (<2.0)
[2019-12-16 15:15] LABS: ALKALINE PHOSPHATASE 112 U/L (38-126); ANION GAP 8 (5-19); ASPARTATE AMINO TRANSFERASE 30 U/L (14-36); BILIRUBIN,DIRECT 0.3 mg/dL (0.0-0.4); BILIRUBIN,TOTAL 0.4 mg/dL (0.2-1.3); BLOOD UREA NITROGEN 10 mg/dL (7-20); CALCIUM 9.3 mg/dL (8.4-10.2); CARBON DIOXIDE 28 mmol/L (22-30); CHLORIDE 105 mmol/L (98-107); GLUCOSE 95 mg/dL (75-110); POTASSIUM 4.6 mmol/L (3.6-5.0); TOTAL PROTEIN 6.5 g/dL (6.3-8.2)
--- NOTE | 2019-12-16 15:35 | EKG REPORT ---
SEVERITY:- NORMAL ECG - SINUS RHYTHM : Confirmed by: Corona Carrillo MD 16-Dec-2019 15:34:33
[2019-12-16 16:04] LABS: A TYPE INFLUENZA AG NEGATIVE (NEGATIVE); B INFLUENZA AG NEGATIVE (NEGATIVE)
--- NOTE | 2019-12-16 16:08 | RADIOLOGY REPORT (SQ) ---
EXAM DESCRIPTION: CT ABD/PELVIS NO ORAL OR IV IMAGES COMPLETED DATE/TIME: 12/16/2019 2:39 pm REASON FOR STUDY: low back/flank pain . Right and left lower quadrant pain. COMPARISON: None. TECHNIQUE: CT scan of the abdomen and pelvis performed without intravenous or oral contrast. Images reviewed with lung, soft tissue, and bone windows. Reconstructed coronal and sagittal MPR images revi ewed. All images stored on PACS. All CT scanners at this facility use dose modulation, iterative reconstruction, and/or weight based d osing when appropriate to reduce radiation dose to as low as reasonably achievable (ALARA). [facility]: Dose Right [facility]: CareDose [facility]: Dose Right [facility]: Teradose 4D [facility]: [employer] Technologies RADIATION DOSE: CT Rad equipment meets quality standard of care and radiation dose reduction techniq ues were employed. CTDIvol: 9.5 mGy. DLP: 496 mGy-cm.mGy. LIMITATIONS: None. FINDINGS: LOWER CHEST: Calcified granulomas left lower lobe. No focal consolidation or pleural effu cira. NON-CONTRASTED LIVER, SPLEEN, ADRENALS: Evaluation limited by lack of IV contrast. No identified sign ificant masses. PANCREAS: No masses. No peripancreatic inflammatory changes. GALLBLADDER: Tiny gallstones within the gallbladder lumen. No gallbladder wall thickening or pericho lecystic fluid. RIGHT KIDNEY AND URETER: Right kidney has normal size and position. No renal or ureteral calculi. Prominent right extrarenal pelvis. No hydronephrosis or hydroureter. LEFT KIDNEY AND URETER: Normal size and position. No renal or ureteral calculi. No significant kaylie cifications. No hydronephrosis or hydroureter. AORTA AND RETROPERITONEUM: No aneurysm. No retroperitoneal masses or adenopathy. BOWEL AND PERITONEAL CAVITY: Postoperative changes of prior gastric bypass. No obvious masses or in flammatory changes. No free fluid. APPENDIX: Normal. PELVIS, BLADDER, AND ABDOMINAL WALL:Multiple calcified pelvic phleboliths. Urinary bladder has demetrius l contour. Post hysterectomy. No adnexal mass. BONES: No significant findings. OTHER: No other significant finding. IMPRESSION: 1. No renal or ureteral calculi. 2. Appendix is normal. 3. Cholelithiasis. No CT evidence of acute cholecystitis. 4. Status post gastric bypass. COMMENT: Quality ID # [id number]: Final reports with documentation of one or more dose reduction techniques (e.g., Automated exposure control, adjustment of the mA and/or kV according to patient size, use of iterative reconstruction technique) TECHNICAL DOCUMENTATION: JOB ID: [id number] 2010 [employer]- All Rights Reserved Reading location - IP/workstation name: [email or web address]
[2019-12-16] MEDS ORDERED: KETOROLAC TROMETHAMINE INJ/PF 30 MG/1 ML SDV IV ONE (17:44)
--- NOTE | 2019-12-16 18:11 | RADIOLOGY REPORT (SQ) ---
EXAM DESCRIPTION: L SPINE WHOLE IMAGES COMPLETED DATE/TIME: 12/16/2019 5:59 pm REASON FOR STUDY: lbp COMPARISON: None. NUMBER OF VIEWS: Five views including obliques. TECHNIQUE: AP, lateral, oblique, and sacral radiographic images acquired of the lumbar spine. LIMITATIONS: None. FINDINGS: MINERALIZATION: Normal. SEGMENTATION: Normal. No transitional anatomy. ALIGNMENT: Grade 1 anterolisthesis of L4 on L5. VERTEBRAE: Maintained height. No fracture or worrisome bone lesion. DISCS: Disc space narrowing at L4-L5. No significant osteophytes or end plate irregularity. POSTERIOR ELEMENTS: Pedicles and facets are intact. No pars defect or posterior arch defects. HARDWARE: None in the spine. PARASPINAL SOFT TISSUES: Normal. PELVIS: Intact as visualized. No fractures or worrisome bone lesions. SI joints intact. OTHER: No other significant finding. IMPRESSION: DEGENERATIVE DISC DISEASE AT L4-L5 WITH GRADE 1 ANTEROLISTHESIS. TECHNICAL DOCUMENTATION: JOB ID: [id number] 2010 [employer]- All Rights Reserved Reading location - IP/workstation name: [email or web address]
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
[2019-12-16 19:35] LABS: ACETAMINOPHEN < 10 ug/mL (10-30); ALCOHOL < 10 mg/dL (NONE DETECTED); SALICYLATE < 1.0 mg/dL (2.0-20.0)
[2019-12-16] MEDS ORDERED: LIDOCAINE 5% (700 MG) TRANSDERMAL ADH..PATCH TP ONE (19:55)
[2019-12-16 20:08] LABS: URINE AMPHETAMINES SCREEN NEGATIVE; URINE BARBITURATES SCREEN NEGATIVE; URINE BENZODIAZEPINES SCREEN NEGATIVE; URINE COCAINE SCREEN NEGATIVE; URINE MARIJUANA (THC) SCREEN NEGATIVE; URINE METHADONE SCREEN NEGATIVE; URINE PHENCYCLIDINE SCREEN NEGATIVE
[2019-12-17] MEDS ORDERED: DIAZEPAM 5 MG TABLET PO ONE (01:46)
[2019-12-17] MEDS ORDERED: HYDROMORPHONE HCL INJ/PF 2 MG/ML AMPULE IV ONE (12:30)
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
[2019-12-17] MEDS ORDERED: ONDANSETRON HCL INJ/PF 4 MG/2 ML SDV IV ONE (14:03)
[2019-12-17] MEDS ORDERED: LIDOCAINE 5% (700 MG) TRANSDERMAL ADH..PATCH TP ONE (16:48)
[2019-12-17] MEDS ORDERED: KETOROLAC TROMETHAMINE INJ/PF 30 MG/1 ML SDV IV ONE (16:48)
[2019-12-17] MEDS ORDERED: BUSPIRONE HCL 10 MG TABLET PO SCH (18:00)
[2019-12-17] MEDS ORDERED: FENTANYL CITRATE INJ/PF 100 MCG/2 ML AMPUL ONE (18:29)
--- NOTE | 2019-12-17 19:36 | ER Document Report ---
Doctor's Note Notes: 12/17/19 19:34 PHYSICAL EXAMINATION: GENERAL: Tearful HEAD: Atraumatic, normocephalic. EYES: sclera anicteric, conjunctiva are normal. ENT: nares patent. Moist mucous membranes. NECK: Normal range of motion, supple without lymphadenopathy LUNGS: CTAB and equal. No wheezes rales or rhonchi. HEART: Regular rate and rhythm without murmurs ABDOMEN: Soft, nontender, normal bowel sounds, no guarding. EXTREMITIES: Normal range of motion, No cyanosis. BACK: No midline tenderness, no step-off or deformity. Right CVA tenderness NEUROLOGICAL: Cranial nerves grossly intact. Normal speech. Normal gait. PSYCH: Tearful SKIN: Warm, Dry, normal turgor, no rashes or lesions noted Patient without any acute findings on her diagnostic evaluation, suspect likely musculoskeletal cause of her back pain symptoms. Patient has been cleared by the behavioral health team for discharge as she no longer meets IVC criteria. Patient without any SI or HI. Arrangements have been made to have patient accepted at the [facility] after 8 PM this evening. Staff are to call at 830 if they have not called with the available bed. Patient is agreeable with this discharge plan of care.
[2019-12-17] MEDS ORDERED: ONDANSETRON 4 MG TAB.RAPDIS PO ONE (20:59)
[2019-12-17] MEDS ORDERED: OXYCODONE-ACETAMINOPHEN 5-325 MG TABLET PO ONE (21:25)
[2019-12-18 01:08] VITALS: BP 117/69
== END 2019-12-18 01:40 | disposition home or self-care (01) ==
LOC: ER 13:24
DX: R03.0 Elevated blood-pressure reading, without diagnosis of hypertension (principal); R11.2 Nausea with vomiting, unspecified; M54.9 Dorsalgia, unspecified; F32.9 Major depressive disorder, single episode, unspecified; R42 Dizziness and giddiness; R10.9 Unspecified abdominal pain; R82.998 Other abnormal findings in urine; I10 Essential (primary) hypertension; Z98.84 Bariatric surgery status
CPT/HCPCS: 93005; 99281; 36415; 80307 ×4; 83690; 84443; 85025; 87635; 80053; 81001; 84484; 87804; 72110; 74176; 93010; J1885; J1170; J2405; J7120; C9803; J3010; S0119